=== PATIENT | female | born 1955 | race Caucasian/White ===

== ENCOUNTER 2023-07-16 06:00 | Inpatient (IN) | payer MEDICARE, MEDICAID ==
[2023-07-13 12:50] LABS: Urine WBC None Seen /hpf (0 - 5)
[2023-07-13 12:57] LABS: Basophils # (auto) 0 10 ^3/uL (0-0.2); Eosinophils # (auto) 0.1 10 ^3/uL (0-0.8); Monocytes # (auto) 0.5 10 ^3/uL (0-1.3); Monocytes % (auto) 6.7 % (0.0-12.0); Red Blood Cells 3.87 10^6/uL (4.0-5.20)
[2023-07-13 12:59] LABS: Basophils % (auto) 0.5 % (0.0-2.0); Eosinophils % (auto) 1.4 % (0.0-7.0); Hematocrit 43.8 % (36.0-46.0); Hemoglobin 14.5 g/dL (12.2-16.2); Lymphocytes # (auto) 3.1 10 ^3/uL (0.4-5.4); Lymphocytes % (auto) 43.9 % (10.0-50.0); Mean Corpuscular Hemoglobin 37.4 pg (28.0-32.0); Mean Corpuscular Volume 113.4 fL (80.0-100.0); Neutrophils # (auto) 3.4 10 ^3/uL (1.6-8.6); Neutrophils % (auto) 47.5 % (37.0-80.0); White Blood Cell 7.1 10^3/uL (4.4-10.8)
[2023-07-13 13:00] LABS: Urine Bacteria FEW /hpf (None Seen); Urine Blood Negative /uL (Negative); Urine Clarity Clear (Clear); Urine Protein, UAD Negative (Negative); Urine Urobilinogen Normal (Negative)
[2023-07-13 13:03] LABS: Urine Color Straw (Yellow)
[2023-07-13 13:14] LABS: INR 0.96 (0.9-1.15); Partial Thromboplastin Time 31.3 SEC (24.5-34.5); Prothrombin Time 10.1 sec (9.3-11.8)
[2023-07-13 13:19] LABS: Albumin 4.8 g/dL (3.2-4.8); Alkaline Phosphatase 54 U/L (46-116); Anion Gap 5 (5-15); Aspartate Aminotransferase 10 U/L (13-40); BUN/Creatinine Ratio 34.5 (10.0-20.0); Blood Urea Nitrogen 29 mg/dL (9-23); Calcium 10.1 mg/dL (8.7-10.4); Carbon Dioxide 28 mmol/L (20-30); Chloride 104 mmol/L (98-107); Glucose 86 mg/dL (74-106); Potassium 4.5 mmol/L (3.5-5.1); Sodium 137 mmol/L (136-145)
[2023-07-13 13:20] LABS: Bilirubin, Total 0.4 mg/dL (0.2-1.0); Total Protein 7.3 g/dL (5.7-8.2)
[2023-07-13 13:47] LABS: Alanine Aminotransferase < 9 U/L (7-40)
[~2023-07-16] VITALS: Ht 160 cm; Wt 66.4 kg
[2023-07-16] VITALS (10 sets, daily range): BP systolic 106–113; BP diastolic 51–56; PULSE 61–89; RESP 9–20; TEMP 97.6–98; O2SAT 93–97
[~2023-07-16 06:00] MED LIST: FLUT250M2 IN; GABA-1250 PO; HYD500C PO; HYDR-4798 PO; LATA0.0020 EACHEYE; LIDO5PAD12 EX; PRED10TA PO; TIZA4CAP PO; ZOLP10TA6 PO
[2023-07-16] MEDS: SUCCINYLCHOLINE CHLORIDE 20 MG/ML 10ML VIAL IV ONE (06:25)
[2023-07-16] MEDS: ceFAZolin 2 GM/D5W50ml 50 ML IV ONE (06:25)
[2023-07-16] MEDS ORDERED: fentaNYL CITRATE 100 MCG/2 ML VL ONE ×3 (06:30→09:56)
[2023-07-16] MEDS ORDERED: PROPOFOL 10 MG/ML 20 ML IV ONE (06:30)
[2023-07-16] MEDS: TRANEXAMIC ACID 20 ML ONE (06:32)
[2023-07-16] MEDS ORDERED: LIDOCAINE 1% INJ PF 5ML AMP ONE (06:39)
[2023-07-16] MEDS ORDERED: MIDAZOLAM HCL 2MG/2ML 2ml VIAL (1mg/ml) ONE (07:22)
[2023-07-16] MEDS ORDERED: ROCURONIUM 10MG/ML 10ML VIAL IV ONE (08:21)
[2023-07-16] MEDS ORDERED: ePHEDrine SULFATE 50 MG/ML AMP ONE (08:25)
[2023-07-16] MEDS ORDERED: DexAMETHasone SOD PHOS 10MG/1ML VIAL INJ ONE (08:52)
[2023-07-16] MEDS ORDERED: ONDANSETRON HCL 4 MG/2 ML VIAL ONE (08:52)
[2023-07-16] MEDS ORDERED: MEPERIDINE HCL (50 MG/ML) 1 ML VIAL ONE (08:56)
[2023-07-16] MEDS: LIDOCAINE W/ EPINEPHRINE 1% 20ML VIAL ONE (09:28)
[2023-07-16] MEDS ORDERED: ceFAZolin 1GM/50ML 50 ML IV SCH (10:45)
[2023-07-16] MEDS ORDERED: MORPHINE SULFATE INJ 2 MG/ml SYRG IV PRN ×2 (10:45)
[2023-07-16] MEDS ORDERED: ONDANSETRON HCL 4 MG/2 ML VIAL IV PRN ×3 (10:45→13:15)
[2023-07-16] MEDS ORDERED: NITROGLYCERIN 0.4 MG SL TAB SL PRN (10:45)
[2023-07-16] MEDS ORDERED: ACETAMINOPHEN 325 MG TAB PO PRN (10:45)
[2023-07-16] MEDS: HYDROmorphone HCL 2 MG/ML VL/or syr IV PRN (11:50)
[2023-07-16] MEDS: ACETAMINOPHEN IV 100 ML IV ONE (11:51)
[2023-07-16] MEDS: ACETAMINOPHEN IV 1000 MG/100ML (10MG/ML) IV ONE (11:55)
[2023-07-16] MEDS: D5W/SOD CHLO 0.9% 1,000 ML IV SCH ×2 (12:00→17:00)
[2023-07-16] MEDS: MEPERIDINE HCL (25 MG/ML) 1ML VIAL IV PRN (12:26)
[2023-07-16] MEDS: HYDROmorphone HCL 2 MG TAB PO PRN (13:38)
[2023-07-16] MEDS: CYCLOBENZAPRINE HCL 10 MG TAB PO SCH (13:38)
[2023-07-16] MEDS: ceFAZolin 1GM/50ML 50 ML IV SCH (16:22)
[2023-07-16] MEDS: HYDROcodone-ACET 10/325MG TAB PO PRN (16:22)
[2023-07-16] MEDS ORDERED: LORazepam 2MG/ML-1ML VIAL IV PRN (17:00)
[2023-07-16] MEDS: ALBUTEROL SULF 2.5 MG/0.5ML(0.5%) NEB SOLN NEB SCH (18:58)
[2023-07-16] MEDS: IPRATROPIUM BROM 0.5 MG/2.5ML INH SOL NEB SCH (18:58)
[2023-07-16] MEDS: LATANOPROST 0.005 % OPTH(EYE) SOL 2.5ML EACHEYE SCH (21:37)
[2023-07-16] MEDS: DOCUSATE SOD 100 MG CAP PO SCH (21:37)
[2023-07-16] MEDS: GABAPENTIN 300 MG CAP PO SCH (21:37)
[2023-07-16] MEDS: hydroxyUREA 500 MG CAP PO SCH (22:00)
[2023-07-16] MEDS ORDERED: TEMAZEPAM 15 MG CAP PO ONE (22:45)
[2023-07-17] VITALS (17 sets, daily range): BP systolic 93–116; BP diastolic 43–68; PULSE 59–90; RESP 16–21; TEMP 98.4–100.6; O2SAT 90–97
[2023-07-17] MEDS: TEMAZEPAM 15 MG CAP PO ONE (00:15)
[2023-07-17 06:08] LABS: Basophils # (auto) 0 10 ^3/uL (0-0.2); Eosinophils # (auto) 0 10 ^3/uL (0-0.8)
[2023-07-17 06:12] LABS: Basophils % (auto) 0.1 % (0.0-2.0); Hematocrit 35.3 % (36.0-46.0); Hemoglobin 11.7 g/dL (12.2-16.2); Lymphocytes % (auto) 20.2 % (10.0-50.0); Mean Corpuscular Hemoglobin 37.7 pg (28.0-32.0); Mean Corpuscular Hgb Conc. 33.3 g/dL (32.0-36.0); Mean Corpuscular Volume 113.5 fL (80.0-100.0); Monocytes # (auto) 1.1 10 ^3/uL (0-1.3); Neutrophils # (auto) 6.8 10 ^3/uL (1.6-8.6); Neutrophils % (auto) 68.7 % (37.0-80.0); Red Blood Cells 3.11 10^6/uL (4.0-5.20); Red Cell Distribution Width 13.7 % (11.8-14.3); White Blood Cell 9.9 10^3/uL (4.4-10.8)
[2023-07-17 06:24] LABS: Anion Gap 3 (5-15); Carbon Dioxide 28 mmol/L (20-30); Chloride 108 mmol/L (98-107); Sodium 139 mmol/L (136-145)
[2023-07-17 06:25] LABS: Calcium 8.5 mg/dL (8.5-10.1)
[2023-07-17 06:30] LABS: BUN/Creatinine Ratio 21.3 (10.0-20.0); Blood Urea Nitrogen 13 mg/dL (9-23); Glucose 127 mg/dL (74-106)
[2023-07-17] MEDS ORDERED: BRIN1SUS7 EACHEYE (07:18)
[2023-07-17] MEDS ORDERED: THROAT LOZENGES(CEPASTAT) MT PRN (15:30)
[2023-07-17] MEDS: MILK OF MAGNESIA 30ML SUSP PO PRN (18:12)
[2023-07-17] MEDS: SIMBRINZA EACHEYE SCH (21:52)
[2023-07-18] VITALS (18 sets, daily range): BP systolic 93–111; BP diastolic 55–71; PULSE 71–102; RESP 16–20; TEMP 97.9–100.9; O2SAT 90–99
[2023-07-18] MEDS: POLYETHYLENE GLYCOL 17 GM PWDR PO SCH (09:15)
[2023-07-19] VITALS (14 sets, daily range): BP systolic 94–118; BP diastolic 40–85; PULSE 69–92; RESP 18–22; TEMP 98.2–99.8; O2SAT 82–100
[2023-07-19 06:12] LABS: Alanine Aminotransferase 14 U/L (7-40); Alkaline Phosphatase 45 U/L (46-116); Anion Gap 5 (5-15); BUN/Creatinine Ratio 11.5 (10.0-20.0); Blood Urea Nitrogen 7 mg/dL (9-23); Calcium 8.7 mg/dL (8.7-10.4); Carbon Dioxide 28 mmol/L (20-30); Chloride 103 mmol/L (98-107); Glucose 105 mg/dL (74-106); Potassium 4.2 mmol/L (3.5-5.1); Sodium 136 mmol/L (136-145)
[2023-07-19 06:13] LABS: Albumin 3.4 g/dL (3.2-4.8); Aspartate Aminotransferase 32 U/L (13-40); Bilirubin, Total 0.4 mg/dL (0.2-1.0); Total Protein 5.4 g/dL (5.7-8.2)
[2023-07-19 06:16] LABS: Basophils # (auto) 0 10 ^3/uL (0-0.2); Eosinophils # (auto) 0.1 10 ^3/uL (0-0.8); Hematocrit 34.8 % (36.0-46.0); Lymphocytes # (auto) 1.6 10 ^3/uL (0.4-5.4); Monocytes # (auto) 0.7 10 ^3/uL (0-1.3)
[2023-07-19 06:18] LABS: Basophils % (auto) 0.4 % (0.0-2.0); Hemoglobin 11.7 g/dL (12.2-16.2); Lymphocytes % (auto) 24.4 % (10.0-50.0); Mean Corpuscular Hgb Conc. 33.7 g/dL (32.0-36.0); Mean Corpuscular Volume 112.7 fL (80.0-100.0); Monocytes % (auto) 11.3 % (0.0-12.0); Neutrophils % (auto) 61.9 % (37.0-80.0); Nucleated Red Blood Cells % 0.1 %; Red Blood Cells 3.08 10^6/uL (4.0-5.20); Red Cell Distribution Width 13.7 % (11.8-14.3); White Blood Cell 6.4 10^3/uL (4.4-10.8)
[2023-07-19 08:30] LABS: Erythrocyte Sedimentation Rate 29 mm/hr (0-20)
[2023-07-19 11:09] LABS: Macrocytosis Marked; Platelet Estimate Adequate
[2023-07-20] VITALS (15 sets, daily range): BP systolic 90–140; BP diastolic 43–70; PULSE 69–90; RESP 16–24; TEMP 97.9–99.2; O2SAT 93–100
[2023-07-20] MEDS: MILK OF MAGNESIA 30ML SUSP PO ONE (15:08)
[2023-07-20] MEDS: CARISOPRODOL 350 MG TAB PO SCH (21:13)
[2023-07-21] VITALS (13 sets, daily range): BP systolic 100–127; BP diastolic 46–71; PULSE 56–88; RESP 15–20; TEMP 97.8–98.3; O2SAT 91–98
[2023-07-21] MEDS: MORPHINE SULFATE 4 MG/ML SYR/VIAL IV ONE (00:03)
[2023-07-21] MEDS: MILK OF MAGNESIA 30ML SUSP PO SCH (11:28)
[2023-07-22] VITALS (13 sets, daily range): BP systolic 96–117; BP diastolic 48–60; PULSE 72–93; RESP 15–20; TEMP 98.2–98.8; O2SAT 90–100
[2023-07-22] MEDS: HYDROmorphone HCL 2 MG TAB PO PRN (14:13)
[2023-07-23] VITALS (7 sets, daily range): BP systolic 110–122; BP diastolic 61–80; PULSE 77–96; RESP 18–20; TEMP 98–98.4; O2SAT 91–98
[2023-07-23] MEDS ORDERED: HYDR-4798 PO (08:34)
[2023-07-23] MEDS ORDERED: GABA-1250 PO (08:35)
[2023-07-23] MEDS ORDERED: CARI-579 PO (08:35)
[2023-07-23] MEDS: ACETAMINOPHEN 325 MG TAB PO PRN (10:48)
== END 2023-07-23 13:45 | disposition home health service (06) | DRG 460 ==
LOC: SUR 06:00 → TELE 10:41 → TELE-WESTW 13:22 → WEST WING 07-21 06:15
PROVIDERS: ADMIT Orthopaedic Surgery; ATTEND Internal Medicine
PROC: 0SG0071 Fusion of Lumbar Vertebral Joint with Autologous Tissue Substitute, Posterior Approach, Posterior Column, Open Approach (ICD-10-PCS; 2023-07-16)
PROC: 4A11X4G Monitoring of Peripheral Nervous Electrical Activity, Intraoperative, External Approach (ICD-10-PCS; 2023-07-16)
PROC: 0SG3071 Fusion of Lumbosacral Joint with Autologous Tissue Substitute, Posterior Approach, Posterior Column, Open Approach (ICD-10-PCS; 2023-07-16)
PROC: 01NR0ZZ Release Sacral Nerve, Open Approach (ICD-10-PCS; 2023-07-16)
PROC: 01NB0ZZ Release Lumbar Nerve, Open Approach (ICD-10-PCS; principal; 2023-07-16 08:14)
DX: M48.062 Spinal stenosis, lumbar region with neurogenic claudication (principal); D62 Acute posthemorrhagic anemia; J96.10 Chronic respiratory failure, unspecified whether with hypoxia or hypercapnia; D45 Polycythemia vera; G89.29 Other chronic pain; M43.16 Spondylolisthesis, lumbar region; M54.16 Radiculopathy, lumbar region; J44.9 Chronic obstructive pulmonary disease, unspecified; K59.00 Constipation, unspecified; Z79.899 Other long term (current) drug therapy
CPT/HCPCS: 36415; 70450; 71045; 72100; 76000; 80048; 80053; 81001; 85025; 85610; 85652; 85730; 86850; 86900; 86901; 94640; 97110; 97116; 97163; 97530; G0378; J0131; J0330; J1100; J2250; J2405; J2704; J7042